=== PATIENT | male | born 1960 | race Caucasian/White ===

== ENCOUNTER 2017-08-16 01:34 | Emergency (ER) | payer BC, MEDICAID ==
[~2017-08-16] VITALS: Ht 180.3 cm; Wt 88.5 kg
[~2017-08-16 01:34] MED LIST: ARIP15TA2 PO; ASPI81TA2 PO; BENA20TA2 PO; DOCU-144 PO; GLIP5TAB13 PO; GLU850 PO; LEVO25TA7 PO; SIMV20TA2 PO
[2017-08-16 01:39] VITALS: BP_SYST 164
[2017-08-16 02:17] LABS: BILIRUBIN,URINE NEGATIVE (NEGATIVE); BLOOD, URINE 3+ (NEGATIVE); CLARITY/URINE SL CLOUDY (CLEAR); COLOR,URINE RED (YELLOW); GLUCOSE,URINE TRACE (NEGATIVE); KETONES,URINE NEGATIVE (NEGATIVE); LEUKOCYTE ESTERASE ,URINE NEGATIVE (NEGATIVE); NITRITE, URINE NEGATIVE (NEGATIVE); PROTEIN URINE 1+ (NEGATIVE); UROBILINOGEN,URINE 0.2 (0.2-1.0)
[2017-08-16 02:18] LABS: BACTERIA,URINE FEW /HPF (None Seen); RBC,URINE >100 /HPF (0-3); WBC,URINE 0-3 /HPF (0-3)
[2017-08-16] MEDS ORDERED: NACL 0.9% 1,000 ML IV ONE (02:30)
[2017-08-16 03:08] LABS: EOSINOPHILS # (AUTO) 0.2 K/uL (0.0-0.4); HEMOGLOBIN 15.3 g/dL (14.0-18.0); LYMPHOCYTES # (AUTO) 1.5 K/uL (1.0-5.5); MEAN CORPUSCULAR HGB CONC 32 % (32-36); NEUTROPHILS # (AUTO) 10.1 K/uL (1.8-7.7)
[2017-08-16 03:11] LABS: BASOPHILS # (AUTO) 0.1 K/uL (0.0-0.2); BASOPHILS % (AUTO) 0.5 % (0.0-2.0); EOSINOPHILS % (AUTO) 1.6 % (0.0-4.0); HEMATOCRIT 48.5 % (36-54); LYMPHOCYTES % (AUTO) 12.1 % (20.5-51.5); MEAN CORPUSCULAR HEMOGLOBIN 27 pg (27-31); MEAN CORPUSCULAR VOLUME 84 fL (79.0-98.0); MONOCYTES # (AUTO) 0.7 K/uL (0.0-1.0); MONOCYTES % (AUTO) 5.2 % (1.7-9.3); NEUTROPHILS % (AUTO) 80.6 % (40.0-70.0); PLATELET COUNT (AUTO) 339 K/uL (130-430); RED BLOOD CELL COUNT(AUTO) 5.77 MIL/uL (4.2-6.2); RED CELL DISTRIBUTION WIDTH 14.3 % (9.0-15.0); WHITE BLOOD COUNT (AUTO) 12.6 K/uL (4.8-10.8)
[2017-08-16 03:17] LABS: CALCIUM 9.6 mg/dL (8.4-11.0); CREATININE 1.26 mg/dL (0.55-1.30); POTASSIUM 3.7 mmol/L (3.5-5.1)
[2017-08-16 03:23] LABS: ALBUMIN 3.6 g/dL (3.4-4.8); TOTAL BILIRUBIN 0.3 mg/dL (0.0-1.0)
[2017-08-16 03:48] VITALS: BP_SYST 154
== END 2017-08-16 03:48 | disposition home or self-care (01) ==
LOC: SED 01:34
DX: N39.0 Urinary tract infection, site not specified (principal); R31.0 Gross hematuria; I10 Essential (primary) hypertension; E11.9 Type 2 diabetes mellitus without complications; Z79.899 Other long term (current) drug therapy
CPT/HCPCS: 36415; 74176; 80053; 81000; 82550; 85025; 96360; 99285; J7030

== ENCOUNTER 2017-09-21 10:30 | Emergency (ER) | payer MEDICAID ==
[~2017-09-21] VITALS: Ht 180.3 cm; Wt 81.6 kg
[2017-09-21 10:38] VITALS: BP_SYST 137
[2017-09-21 11:22] VITALS: BP_SYST 131
== END 2017-09-21 11:22 | disposition home or self-care (01) ==
LOC: SED 10:30
DX: L02.31 Cutaneous abscess of buttock (principal); E11.9 Type 2 diabetes mellitus without complications; I10 Essential (primary) hypertension; Z79.899 Other long term (current) drug therapy
CPT/HCPCS: 99283

== ENCOUNTER 2019-12-20 06:21 | Emergency (ER) | payer MEDICAID ==
[~2019-12-20] VITALS: Ht 182.9 cm; Wt 86.6 kg
[~2019-12-20 06:21] MED LIST changes: +ASPI-1155 PO; -ASPI81TA2 PO; -BENA20TA2 PO; +BENA20TA9 PO
[2019-12-20 06:49] VITALS: BP_SYST 151
[2019-12-20 07:00] VITALS: BP_SYST 151
== END 2019-12-20 07:00 | disposition home or self-care (01) ==
LOC: SED 06:21
DX: L73.9 Follicular disorder, unspecified (principal); I10 Essential (primary) hypertension; E11.9 Type 2 diabetes mellitus without complications; Z79.82 Long term (current) use of aspirin; Z79.84 Long term (current) use of oral hypoglycemic drugs; Z79.899 Other long term (current) drug therapy
CPT/HCPCS: 99283

== ENCOUNTER 2020-01-15 08:50 | Emergency (ER) | payer MEDICAID ==
[~2020-01-15] VITALS: Ht 182.9 cm; Wt 72.6 kg
[2020-01-15 09:53] VITALS: BP_SYST 158
[2020-01-15 10:48] LABS: BASOPHILS # (AUTO) 0.1 K/uL (0.0-0.2); BASOPHILS % (AUTO) 0.5 % (0.0-2.0); EOSINOPHILS % (AUTO) 0.5 % (0.0-4.0); HEMATOCRIT 46.4 % (36-54); HEMOGLOBIN 15.3 g/dL (14.0-18.0); LYMPHOCYTES # (AUTO) 1.1 K/uL (1.0-5.5); LYMPHOCYTES % (AUTO) 11.2 % (20.5-51.5); MEAN CORPUSCULAR HEMOGLOBIN 28 pg (27-31); MEAN CORPUSCULAR HGB CONC 33 % (32-36); MEAN CORPUSCULAR VOLUME 84 fL (79.0-98.0); MONOCYTES # (AUTO) 0.4 K/uL (0.0-1.0); MONOCYTES % (AUTO) 4.4 % (1.7-9.3); NEUTROPHILS # (AUTO) 8.2 K/uL (1.8-7.7); NEUTROPHILS % (AUTO) 83.4 % (40.0-70.0); PLATELET COUNT (AUTO) 266 K/uL (130-430); RED BLOOD CELL COUNT(AUTO) 5.55 MIL/uL (4.2-6.2); RED CELL DISTRIBUTION WIDTH 14.7 % (9.0-15.0); WHITE BLOOD COUNT (AUTO) 9.8 K/uL (4.8-10.8)
[2020-01-15 11:13] LABS: CALCIUM 9.5 mg/dL (8.4-11.0); CREATININE 1.4 mg/dL (0.55-1.30); POTASSIUM 4.6 mmol/L (3.5-5.1)
[2020-01-15 11:18] LABS: ALBUMIN 3.9 g/dL (3.4-4.8); TOTAL BILIRUBIN 0.5 mg/dL (0.0-1.0)
[2020-01-15 13:46] VITALS: BP_SYST 158
== END 2020-01-15 13:46 | disposition home or self-care (01) ==
LOC: SED 08:50
DX: R21 Rash and other nonspecific skin eruption (principal); I10 Essential (primary) hypertension; E11.9 Type 2 diabetes mellitus without complications; Z79.899 Other long term (current) drug therapy
CPT/HCPCS: 36415; 80053; 85025; 85610-TC; 87040-TC; 99283

== ENCOUNTER 2020-07-07 10:52 | Emergency (ER) | payer MEDICAID ==
[~2020-07-07] VITALS: Ht 180.3 cm; Wt 83.9 kg
[2020-07-07 11:00] VITALS: BP_SYST 146
[2020-07-07 13:09] VITALS: BP_SYST 146
== END 2020-07-07 13:10 | disposition home or self-care (01) ==
LOC: SED 10:52
DX: R10.32 Left lower quadrant pain (principal); I10 Essential (primary) hypertension; E11.9 Type 2 diabetes mellitus without complications; Z79.899 Other long term (current) drug therapy
CPT/HCPCS: 99281

== ENCOUNTER 2024-02-05 15:40 | Emergency (ER) | payer MEDICAID, OTHER ==
[~2024-02-05] VITALS: Ht 182.9 cm; Wt 81.6 kg
[~2024-02-05 15:40] MED LIST changes: +BENA-6 PO; -BENA20TA9 PO; +BENZ1TAB7 PO; +ERTU5TAB PO; -GLIP5TAB13 PO; +LIP40 PO; +REPA1TAB8 PO; +SIMV-343 PO; -SIMV20TA2 PO; +STA120 PO; +TICA60TA PO; +VANC1.7511 IV
[2024-02-05 16:01] VITALS: BP_SYST 166; PULSE 73; RESP 18; TEMP 98.3; O2SAT 100
[2024-02-05] MEDS ORDERED: ARIP15TA66 PO (18:11)
[2024-02-05] MEDS ORDERED: BENZ1TAB7 PO (18:11)
[2024-02-05 18:16] VITALS: BP_SYST 148; PULSE 77; RESP 18; TEMP 98.3; O2SAT 100
== END 2024-02-05 18:15 | disposition home or self-care (01) ==
LOC: SED 15:40
DX: F31.9 Bipolar disorder, unspecified (principal); Z76.0 Encounter for issue of repeat prescription; E11.9 Type 2 diabetes mellitus without complications; I10 Essential (primary) hypertension; Z79.899 Other long term (current) drug therapy; Z79.2 Long term (current) use of antibiotics; Z79.82 Long term (current) use of aspirin
CPT/HCPCS: 99281